=== PATIENT | female | born 1975 | race Caucasian/White ===

== ENCOUNTER 2019-07-26 07:03 | Day surgery (SDC) | payer OTHER ==
[2019-07-25 16:16] VITALS: BMI 28.0
[2019-07-26] MEDS ORDERED: PROPOFOL 20 ML ONE (08:27)
[2019-07-26] MEDS ORDERED: MIDAZOLAM HCL 2 MG/2 ML SINGLE DOSE VIAL ONE (08:27)
[2019-07-26] MEDS ORDERED: LIDOCAINE HCL/PF 2% SDV 5ML VIAL ONE (08:28)
[2019-07-26] MEDS ORDERED: DEXAMETHASONE SOD PHOSPHATE 4 MG/1 ML VIAL ONE (08:28)
--- NOTE | 2019-07-26 08:43 | HP ---
Satellite [facility] - Chief Complaint Chief Complaint: left knee pain - Past Medical History Allergies/Adverse Reactions: Allergies Allergy/AdvReac Type Severity Reaction Status Date / Time No Known Allergies Allergy Verified 07/26/19 07:52 ...LMP Comment: unsure - Current Medications Current Medications: Home Medications Medication Instructions Recorded Levothyroxine [Synthroid -] 112 mcg PO DAILY 07/25/19 Oxycodone HCl/Acetaminophen 1 tab PO Q6H #20 tablet MDD 4 07/26/19 [Percocet 5-325 mg Tablet] Satellite Physical Exam - Physical Examination Vital Signs: Vital Signs Period Temp Pulse Resp BP Sys/Wyatt Pulse Ox Last 24 Hr 99.0 F 118 18 118/77 98 General Appearance: Well Nourished, Well Developed, Alert & Oriented x3 ENT: Clear Lung: Normal air movement Extremities: Other (left knee- + swelling, + tp medially, + mcmurrays, nvi, MRI + mmt) Neurological: Intact, Alert, Oriented Satellite Impression/Plan - Impression/Plan Impression: left knee internal derangement Operative Procedure: left knee arthroscopy Date to be Performed: 07/26/19
[2019-07-26] MEDS ORDERED: BUPIVACAINE HCL/PF 0.5% (5 MG/ML) 30 ML VIAL IJ ONE (09:22)
[2019-07-26] MEDS ORDERED: LIDOCAINE HCL 0.5% EPINEPHRINE 1:200,000 50 ML VIAL IJ ONE (09:22)
[2019-07-26] MEDS ORDERED: KETOROLAC TROMETHAMINE 30 MG/1 ML VIAL ONE (09:32)
--- NOTE | 2019-07-26 10:37 | OP ---
Operative Note - Note: Operative Date: 07/26/19 ([facility]) Pre-Operative Diagnosis: left knee internal derangement Operation: left knee arthroscopy with debridement Post-Operative Diagnosis: Same as Pre-op Surgeon: Enrique Joy Anesthesiologist/ELECTRICAL LOGGING OPERATOR: Kristina Santana Anesthesia: General, Local Specimens Removed: shavings Estimated Blood Loss (mls): 5
[2019-07-26 10:45] VITALS: TEMP 98.4
[2019-07-26 12:22] VITALS: BP 105/63; PULSE 72
[2019-07-26] MEDS ORDERED: oxyCODONE HCL 5 MG TABLET PO PRN (14:19)
[2019-07-26] MEDS ORDERED: ONDANSETRON 4 MG/2 ML VIAL IVPUSH PRN (14:19)
[2019-07-26] MEDS ORDERED: LACTATED RINGERS SOLUTION 1,000 ML IV SCH (14:30)
--- NOTE | 2019-07-26 19:16 | OP ---
DATE OF OPERATION: 07/26/2019 PREOPERATIVE DIAGNOSIS: Internal derangement left knee. POSTOPERATIVE DIAGNOSIS: Internal derangement left knee. PROCEDURE: Arthroscopy left knee with debridement. SURGICAL ATTENDING: Enrique Joy M.D. ANESTHESIA: LMA. CLOSURE: 4-0 nylon. COMPLICATIONS: None. CONDITION: To recovery in stable condition. DESCRIPTION OF OPERATIVE PROCEDURE: Patient was taken to the operating room on July 26, 2019. General anesthesia with LMA was administered by the anesthesiologist. Left lower extremity was prepped and draped in the usual sterile fashion. The medial and lateral infrapatellar portal sites were infiltrated with 1% Xylocaine with epinephrine. Both portals were then made with 15 blade followed by blunt trocar. The scope trocar was placed in the lateral infrapatellar portal and up into the suprapatellar pouch. Through this trocar, 20 mL 0.5% Marcaine, 10 mL of 1% Xylocaine, and 20 mL of arthroscopic saline was used to anesthetize the inside part of the knee. After allowing this cocktail to percolate through the knee, the procedure was performed. The patella was visualized to be intact, the medial and lateral gutters were visualized to be clean, the undersurface of the patella and trochlea were visualized to be intact. There was a large amount of scar tissue anteriorly in the knee, this was debrided using the shaver. With valgus stress on the knee, the medial compartment was entered and the medial meniscus was visualized and found to be intact. The medial femoral condyle was run and found to be intact as was the medial tibial plateau. At 90 degrees, the ACL was visualized and probed and found to be intact. In the figure of 4 position, the lateral compartment was entered. The lateral meniscus was visualized and probed and found to be intact. The lateral femoral condyle was run and was found to be intact as was the lateral tibial plateau. The knee was irrigated with copious amounts of irrigation. Port was closed with 4-0 nylon. Prior to closure, 20 mL of 0.5% Marcaine was infused through the for postoperative analgesia. Sterile pressure dressing was placed over the knee. Patient awakened from anesthesia and transferred to recovery in stable condition. No complications. Estimated blood loss negligible. Lul NAVARRETE/[id number]
--- NOTE | 2019-07-27 16:31 | PATH ---
Surgical Pathology Report Patient Name: DINORAH MORENO [facility]. Rec. #: [id number] /Age/Gender: 1975 (Age: 43) / F Account: [id number] Location: [facility] SURGICAL Taken: 07/26/2019 Received: 07/26/2019 Reported: 07/27/2019 Physicians: Enrique Joy M.D. Specimen(s) Received LEFT KNEE SHAVINGS Clinical History Left knee tear Final Diagnosis KNEE SHAVINGS, LEFT, ARTHROSCOPY: FRAGMENTS OF DENSE FIBROCONNECTIVE TISSUE, ADIPOSE TISSUE, AND REACTIVE SYNOVIUM. Electronically Signed Irasema Saunders M.D. Gross Description Received in formalin, labeled "left knee shavings," is a 4.0 x 3.2 x 0.3 cm. aggregate of torres-yellow soft tissue fragments. A sales representative livestock portion is submitted in one cassette. DL/07/26/2019 saudi/07/26/2019
== END 2019-07-26 12:24 | disposition home or self-care (01) ==
LOC: JASU-SURG 07:03
PROVIDERS: ATTEND Orthopaedic Surgery
PROC: 0SBD4ZZ Excision of Left Knee Joint, Percutaneous Endoscopic Approach (ICD-10-PCS; principal; 2019-07-26 08:40)
DX: M23.92 Unspecified internal derangement of left knee (principal); Z72.0 Tobacco use
CPT/HCPCS: 84703; 94760

== ENCOUNTER 2023-11-01 22:28 | Inpatient (IN) | payer BC ==
[2023-11-02 00:03] LABS: BASO % 1.3 % (0-2.0); EOS % 7.3 % (0-4.5); HEMATOCRIT 37.1 % (32.4-45.2); HEMOGLOBIN 12.5 GM/dL (10.7-15.3); LYMPH % 48.2 % (8-40); MCH 30.4 pg (25.7-33.7); MCHC 33.6 g/dl (32.0-36.0); MEAN CELL VOLUME 90.6 fl (80-96); MEAN PLT VOLUME 8.9 fl (7.5-11.1); MONO % 7.2 % (3.8-10.2); PLATELET COUNT 273 10^3/uL (134-434); RDW 13.9 % (11.6-15.6); WHITE BLOOD COUNT 6.8 K/mm3 (4.0-10.0)
[2023-11-02 00:03] LABS: PH,URINE 5.5 (5.0-8.0); URINE APPEARANCE CLEAR; URINE BILIRUBIN NEGATIVE (NEGATIVE); URINE COLOR YELLOW; URINE GLUCOSE (UA) NEGATIVE (NEGATIVE); URINE KETONE TRACE (NEGATIVE); URINE LEUK ESTERASE NEGATIVE (NEGATIVE); URINE NITRITE NEGATIVE (NEGATIVE); URINE PROTEIN NEGATIVE (NEGATIVE)
[2023-11-02] MEDS ORDERED: ACETAMINOPHEN INJECTION 100 ML IVPB ONE (00:04)
[2023-11-02] MEDS: ACETAMINOPHEN 1000 MG/100 ML BAG IVPB ONE (00:15)
[2023-11-02 00:22] LABS: POTASSIUM 3.8 mmol/L (3.5-5.1)
[2023-11-02 00:24] LABS: CALCIUM 9.3 mg/dL (8.5-10.1)
[2023-11-02 00:25] LABS: ALBUMIN 3.6 g/dl (3.4-5.0); BLOOD UREA NITROGEN 9.5 mg/dL (7-18); MAGNESIUM 2.4 mg/dL (1.8-2.4)
[2023-11-02 00:27] LABS: INR 1.13 (0.83-1.09); PROTHROMBIN TIME (PATIENT) 12.7 SEC (9.7-13.0)
[2023-11-02 00:28] LABS: CREATININE 0.8 mg/dL (0.55-1.3)
[2023-11-02 00:29] LABS: ACTIVATED PTT 30.8 SECONDS (25.2-36.5)
[2023-11-02 00:30] LABS: BILIRUBIN,TOTAL 0.3 mg/dL (0.2-1); TOT PROT 7.7 g/dl (6.4-8.2)
[2023-11-02] MEDS: morphine CARPU-JECT 2 MG/1 ML DISP.SYRIN IVPUSH ONE (03:21)
[2023-11-02] MEDS: D5-1/2NS+10 MEQ KCL - 10 MEQ/1,000 ML INFUS.BAG IV SCH (06:20)
[2023-11-02] MEDS: LEVOTHYROXINE NA 112 MCG TABLET (FP) PO SCH (08:41)
[2023-11-02] MEDS: PANTOPRAZOLE 40 MG TABLET PO SCH (10:19)
[2023-11-02 12:41] VITALS: RESP 18; BMI 25.8
[2023-11-02] MEDS: ACETAMINOPHEN 1000 MG/100 ML BAG IVPB PRN (17:42)
[2023-11-03 08:04] LABS: EOS % 7.4 % (0-4.5); HEMATOCRIT 34.4 % (32.4-45.2); HEMOGLOBIN 11.6 GM/dL (10.7-15.3); LYMPH % 38.6 % (8-40); MCH 30.5 pg (25.7-33.7); MCHC 33.6 g/dl (32.0-36.0); MEAN CELL VOLUME 90.7 fl (80-96); PLATELET COUNT 220 10^3/uL (134-434); RBC 3.79 M/mm3 (3.60-5.2); RDW 13.7 % (11.6-15.6); WHITE BLOOD COUNT 5.9 K/mm3 (4.0-10.0)
[2023-11-03 08:23] LABS: POTASSIUM 3.7 mmol/L (3.5-5.1)
[2023-11-03 08:28] LABS: BLOOD UREA NITROGEN 4.7 mg/dL (7-18); CALCIUM 8.6 mg/dL (8.5-10.1)
[2023-11-03 08:32] LABS: CREATININE 0.7 mg/dL (0.55-1.3)
[2023-11-03] MEDS: D5-1/2NS+10 MEQ KCL - 10 MEQ/1,000 ML INFUS.BAG IV SCH (11:29)
[2023-11-03] MEDS: ACETAMINOPHEN 325 MG TABLET (FP) PO ONE (23:26)
[2023-11-04] MEDS ORDERED: ACETAMINOPHEN 325 MG TABLET (FP) PO PRN (12:51)
[2023-11-04 16:17] VITALS: BP 110/68; PULSE 85; TEMP 98.7
== END 2023-11-04 19:23 | disposition home or self-care (01) | DRG 373 ==
LOC: JER 22:28 → JERBED 11-02 04:00 → OBSVTOIN 11-02 04:16 → J6S 11-02 06:36
PROVIDERS: ADMIT Internal Medicine; ATTEND Internal Medicine
PROC: 0W9G3ZZ Drainage of Peritoneal Cavity, Percutaneous Approach (ICD-10-PCS; principal; 2023-11-03)
DX: K65.1 Peritoneal abscess (principal); R06.02 Shortness of breath
CPT/HCPCS: 36415; 49406; 71046-TC-FY; 74177-TC; 80048; 80053; 81003; 83605; 83735; 84484; 84703; 85025; 85610; 85730; 86850; 86900; 86901; 87070; 87075; 87102; 87116; 87205; 87206; 87210; 93005; 93010; 97116-GP; 97161-GP; 99285-25; G0378; J0131; Q9967

== ENCOUNTER 2024-05-03 23:29 | Emergency (ER) | payer BC ==
[2024-05-03 23:34] VITALS: BP 148/64; PULSE 87; RESP 20; TEMP 98.4; BMI 24.7
[2024-05-04] MEDS ORDERED: ACETAMINOPHEN INJECTION 100 ML ONE (00:47)
[2024-05-04] MEDS ORDERED: ONDANSETRON 4 MG/2 ML VIAL ONE (00:48)
[2024-05-04] MEDS ORDERED: MAG HYDROX/AL HYDROX/SIMETH 30 ML UNIT-DOSE CUP ONE (00:48)
[2024-05-04 01:14] LABS: URINE APPEARANCE CLEAR; URINE BILIRUBIN NEGATIVE (NEGATIVE); URINE COLOR YELLOW; URINE GLUCOSE (UA) NEGATIVE (NEGATIVE); URINE KETONE NEGATIVE (NEGATIVE); URINE LEUK ESTERASE NEGATIVE (NEGATIVE); URINE NITRITE NEGATIVE (NEGATIVE); URINE PROTEIN NEGATIVE (NEGATIVE); URINE UROBILINOGEN 0.2 mg/dL (0.2-1.0)
[2024-05-04] MEDS: MAG HYDROX/AL HYDROX/SIMETH 30 ML UNIT-DOSE CUP PO ONE (01:56)
[2024-05-04 02:48] LABS: CALCIUM 8.8 mg/dL (8.5-10.1)
[2024-05-04 02:49] LABS: ALBUMIN 3.4 g/dl (3.4-5.0); BLOOD UREA NITROGEN 8.3 mg/dL (7-18)
[2024-05-04] MEDS: ONDANSETRON 4 MG/2 ML VIAL IVPUSH ONE (02:50)
[2024-05-04 02:51] LABS: CREATININE 0.7 mg/dL (0.55-1.3)
[2024-05-04 02:54] LABS: BILIRUBIN,TOTAL 0.4 mg/dL (0.2-1)
[2024-05-04 03:01] LABS: BASO % 0.8 % (0-2.0); EOS % 3.6 % (0-4.5); HEMATOCRIT 37.6 % (32.4-45.2); HEMOGLOBIN 12.7 GM/dL (10.7-15.3); LYMPH % 26.7 % (8-40); MCH 32.1 pg (25.7-33.7); MCHC 33.7 g/dl (32.0-36.0); MEAN CELL VOLUME 95.3 fl (80-96); MEAN PLT VOLUME 9.7 fl (7.5-11.1); MONO % 5.2 % (3.8-10.2); NEUT % 63.7 % (42.8-82.8); PLATELET COUNT 202 10^3/uL (134-434); RBC 3.95 M/mm3 (3.60-5.2); RDW 13.8 % (11.6-15.6); WHITE BLOOD COUNT 10.4 K/mm3 (4.0-10.0)
[2024-05-04] MEDS: ACETAMINOPHEN 1000 MG/100 ML BAG IVPB ONE (03:04)
[2024-05-04 03:14] LABS: TOT PROT 6.9 g/dl (6.4-8.2)
[2024-05-04 03:20] LABS: POTASSIUM 3.9 mmol/L (3.5-5.1)
[2024-05-04 03:21] LABS: CALCIUM 8.6 mg/dL (8.5-10.1)
[2024-05-04 03:22] LABS: ALBUMIN 3.3 g/dl (3.4-5.0); BLOOD UREA NITROGEN 7.9 mg/dL (7-18)
[2024-05-04 03:25] LABS: CREATININE 0.8 mg/dL (0.55-1.3)
[2024-05-04 03:27] LABS: BILIRUBIN,TOTAL 0.3 mg/dL (0.2-1); TOT PROT 6.4 g/dl (6.4-8.2)
== END 2024-05-04 06:15 | disposition home or self-care (01) ==
LOC: JER 23:29
PROC: 3E033NZ Introduction of Analgesics, Hypnotics, Sedatives into Peripheral Vein, Percutaneous Approach (ICD-10-PCS; principal; 2024-05-04)
PROC: 3E033GC Introduction of Other Therapeutic Substance into Peripheral Vein, Percutaneous Approach (ICD-10-PCS; 2024-05-04)
DX: K57.32 Diverticulitis of large intestine without perforation or abscess without bleeding (principal); R11.0 Nausea; R10.32 Left lower quadrant pain
CPT/HCPCS: 36415; 74177-TC; 76830-TC; 80053; 81003; 83690; 83735; 84703; 85025; 87086; 99285-25; J0131; Q9967